=== PATIENT | female | born 1975 | race Two or more races ===

== ENCOUNTER 2024-09-12 23:06 | Emergency (ER) | payer MEDICAID, OTHER ==
[~2024-09-12] VITALS: Ht 152.4 cm; Wt 84.1 kg
--- NOTE | 2024-09-13 00:15 | ED.PDOC ---
HPI Comments Pt reports to the ER with C/O of laceration to lft thigh. Per pt she was sharpening a pair of scissors and they slipped and hit her thigh. Pt noted to have 1 1/2 inch laceration, bleeding controlled, dressing in place. Chief Complaint: Laceration Time Seen by MD: 23:07 Primary Care Provider: n/a Reviewed Notes: Nurses Notes, Medications, Allergies Allergies: Coded Allergies: NO KNOWN ALLERGIES (Unverified , 09/12/24) Information Source: Patient Mode of Arrival: Ambulatory Complexity: Simple Laceration Length (cm): 2 Past Medical History PAST MEDICAL HISTORY: Denies Surgical History: Denies all surgeries VISUAL ARTIST History: No Pertinent VISUAL ARTIST History Family History Family History: Unknown Social History Smoker: Non-Smoker Alcohol: Denies ETOH Use Drugs: Denies Drug Use Constitutional: denies: chills, diaphoresis, fatigue, fever, malaise, sweats, weakness, others EENTM: denies: blurred vision, double vision, ear bleeding, ear discharge, ear drainage, ear pain, ear ringing, eye pain, eye redness, hearing loss, mouth pain, mouth swelling, nasal discharge, nose bleeding, nose congestion, nose pain, photophobia, tearing, throat pain, throat swelling, voice changes, others Respiratory: denies: cough, hemoptysis, orthopnea, SOB at rest, shortness of breath, SOB with excertion, stridor, wheezing, others Cardiovascular: denies: chest pain, dizzy spells, diaphoresis, Dyspnea on exertion, edema, irregular heart beat, left arm pain, lightheadedness, palpitations, PND, syncope, others Gastrointestinal: denies: abdomen distended, abdominal pain, blood streaked bowels, constipated, diarrhea, dysphagia, difficulty swallowing, hematemesis, m elzbieta, nausea, poor appetite, poor fluid intake, rectal bleeding, rectal pain, vomiting, others Genitourinary: denies: abnormal vagina bleeding, burning, dyspareunia, dysuria, flank pain, frequency, hematuria, incontinence, pain, , vagina discharge, urgency, others Neurological: denies: dizziness, fainting, headache, left sided numbness, left sided weakness, numbness, paresthesia, pre-existing deficit, right sided numbness, right sided weakness, seizure, speech problems, tingling, tremors, weakness, others Musculoskeletal: denies: back pain, gout, joint pain, joint swelling, muscle pain, muscle stiffness, neck pain, others Integumetry: reports: laceration (Laceration left thigh); denies: bruises, change in color, change in hair/nails, dryness, lesions, lumps, rash, wounds, others Allergic/Immunocompromised: denies: Difficulty Healing, Frequent Infections, Hives, Itching, others Hematologic/Lymphatic: denies: anemia, blood clots, easy bleeding, easy bruising, swollen glands, others Endocrine: denies: excessive hunger, excessive sweating, excessive thirst, excessive urination, flushing, intolerance to cold, intolerance to heat, unexplained weight gain, unexplained weight loss, others Psychiatric: denies: anxiety, bipolar disorder, depression, hopeless, panic disorder, schizophrenia, sleepless, suicidal, others Physical Exam General Appearance: No Apparent Distress, Normal HEENT: Pharynx Normal Neck: Full Range of Motion, Non-Tender Respiratory: Lungs Clear, No Respiratory Distress, Normal Breath Sounds Cardiovascular: JVD, No Edema, No Murmur, Normal Peripheral Pulses, Regular Rate/Rhythm Breast Exam: Deferred Gastrointestinal: Non Tender, Soft Genitalia: Deferred Pelvic: Deferred Rectal: Deferred Extremities: Normal capillary refill, Normal inspection, Normal range of motion, Non-tender, No pedal edema Musculoskeletal : Apperance: Normal 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 Was a procedure done?: Yes Sedation Sedation?: No Informed consent obtained: Yes Laceration Repair : Location Left proximal thigh Length 1/2 inch Anesthetic: Nothing Laceration Repair Prep: Saline, by Irrigation Laceration Repair Wound Comple: epidermis/dermis repair Laceration Repair: Dermabond Informed consent obtained: Yes Risks, benefits, and alternati: Yes Notes Patient tolerated well with 0 blood loss Differential diagnosis Generic Laceration: Hematoma, Retained Foriegn Body, Neurovascular Injury, Tendon Injury, Abrasion/Contusion, Laceration, Avulsion X-Ray, Labs, Meds, VS Vital Signs Date Time Temp Pulse Resp B/P (MAP) Pulse Ox O2 Delivery O2 Flow Rate FiO2 09/13/24 00:18 98.7 74 18 126/76 (93) 97 98.7 09/13/24 00:18 74 18 97 Room Air 09/12/24 23:19 98.7 85 18 137/76 (96) 97 98.7 X-Ray, Labs, Meds, VS Comment See procedure note. Patient's tetanus was under 5 years ago. Post Dermabond adhesion instructions provided. Advised to follow up with her PCP in 2 days for wound re-evaluation. [id number] Tylenol or Motrin as needed for the pain per labeled dosing instructions. ER return precautions given for signs and symptoms of infection, or uncontrolled bleeding. Patient indicated under standing and agrees with discharge plan of care. Time of 1ST Reevaluation: 00:15 Reevaluation 1ST: Improved Patient Education/Counseling: Diagnosis, Treatment, Prognosis, Need For Follow Up Family Education/Counseling: No Family Present Departure 1 Departure Time of Disposition: 00:15 Impression: Primary Impression: Laceration of left thigh without complication Qualified Codes: S71.112A - Laceration without foreign body, left thigh, initial encounter Disposition: HOME / SELF CARE / HOMELESS Condition: Stable Discharged With: Self Critical Care Note Critical Care Time?: No Stability Stability form required: DAMON James September 13, 2024 00:15
[2024-09-13 00:18] VITALS: BP 126/76; PULSE 74; RESP 18; TEMP 98.7; O2SAT 97
== END 2024-09-13 00:30 | disposition home or self-care (01) ==
LOC: ER 23:06
DX: S71.112A Laceration without foreign body, left thigh, initial encounter (principal); W22.8XXA Striking against or struck by other objects, initial encounter; Y93.89 Activity, other specified; Y92.89 Other specified places as the place of occurrence of the external cause; Y99.8 Other external cause status
CPT/HCPCS: 12001